=== PATIENT | female | born 1965 | race Caucasian/White ===

== ENCOUNTER 2016-02-21 14:07 | Outpatient (CLI) | payer BC, OTHER | END 2016-02-21 14:08 | disposition home or self-care (01) | DX: N60.11 Diffuse cystic mastopathy of right breast (principal) ==

== ENCOUNTER 2016-07-14 14:50 | Outpatient (CLI) | payer BC, OTHER ==
[2016-07-14 19:12] LABS: BASOPHILS % (AUTO) 0.8 %; EOSINOPHILS # (AUTO) 0.1 10^3/uL (0.0-0.7); EOSINOPHILS % (AUTO) 1.9 %; HCT - HEMATOCRIT 36.8 % (37.0-47.0); HGB - HEMOGLOBIN 11.8 g/dL (12.0-16.0); LYMPHOCYTES # (AUTO) 1.2 10^3/uL (1.5-3.5); LYMPHOCYTES % (AUTO) 19.3 %; MEAN CORPUSCULAR HEMOGLOBIN 26.8 pg (27.0-31.0); MEAN CORPUSCULAR HGB CONC 32.1 g/dL (32.0-36.0); MEAN CORPUSCULAR VOLUME 83.2 fL (81.0-99.0); MEAN PLATELET VOLUME 10.4 fL (7.9-10.8); MONOCYTES # (AUTO) 0.7 10^3/uL (0.0-1.0); MONOCYTES % (AUTO) 10.3 %; NEUTROPHILS # (AUTO) 4.3 10^3/uL (1.5-6.6); NEUTROPHILS % (AUTO) 67.7 %; NUCLEATED RED BLOOD CELLS AUTO 0.1 /100WBC; RED BLOOD COUNT 4.42 10^6/uL (4.20-5.40); RED CELL DISTRIBUTION WIDTH 15.7 % (12.0-15.0); UNCORRECTED WHITE BLOOD COUNT 6.3 x10^3/uL; WHITE BLOOD COUNT 6.3 x10^3/uL (4.8-10.8)
[2016-07-14 19:18] LABS: ALBUMIN/GLOBULIN RATIO 1.1 (1.0-2.2); BILIRUBIN,TOTAL 0.3 mg/dL (0.2-1.0); CALCIUM 9.1 mg/dL (8.5-10.3); CREATININE 0.5 mg/dL (0.4-1.0); POTASSIUM 3.8 mmol/L (3.5-5.0); TOTAL PROTEIN 6.6 g/dL (6.7-8.2)
== END 2016-07-14 14:51 | disposition home or self-care (01) ==
LOC: LAB.WCP 14:50
PROVIDERS: ATTEND Family Medicine
DX: D50.9 Iron deficiency anemia, unspecified (principal); E55.9 Vitamin D deficiency, unspecified; Z98.84 Bariatric surgery status
CPT/HCPCS: 36415; 80053; 82306; 84443; 85025

== ENCOUNTER 2016-09-21 08:00 | Outpatient (CLI) | payer BC, OTHER | END 2016-09-21 23:59 | disposition home or self-care (01) | LOC: LAB.R 08:00 | PROVIDERS: ATTEND Family Medicine | DX: N39.0 Urinary tract infection, site not specified (principal) | CPT/HCPCS: 87086 ==

== ENCOUNTER 2017-04-06 08:00 | Outpatient (CLI) | payer BC, OTHER ==
[2017-04-06 14:05] LABS: FERRITIN 4.3 ng/mL (11.0-306.8)
[2017-04-06 14:12] LABS: MAGNESIUM 1.8 mg/dL (1.7-2.8); TOTAL PROTEIN 6.6 g/dL (6.7-8.2)
== END 2017-04-06 08:01 | disposition home or self-care (01) ==
LOC: LAB.WCP 08:00
PROVIDERS: ATTEND Physician Assistant Medical
DX: M62.81 Muscle weakness (generalized) (principal); D50.9 Iron deficiency anemia, unspecified; Z98.84 Bariatric surgery status
CPT/HCPCS: 36415; 82607; 82728; 82746; 83540; 83735; 84155; 84466

== ENCOUNTER 2018-03-03 13:50 | Outpatient (CLI) | payer BC, OTHER | END 2018-03-03 13:51 | disposition home or self-care (01) | LOC: DI 13:50 | PROVIDERS: ATTEND Family Medicine | DX: R00.2 Palpitations (principal); Z82.49 Family history of ischemic heart disease and other diseases of the circulatory system | CPT/HCPCS: 93306 ==

== ENCOUNTER 2018-10-21 12:44 | Outpatient (CLI) | payer BC, OTHER ==
[2018-10-21 13:09] LABS: BASOPHILS % (AUTO) 0.6 %; EOSINOPHILS # (AUTO) 0.1 10^3/uL (0.0-0.7); EOSINOPHILS % (AUTO) 2.1 %; HGB - HEMOGLOBIN 14.4 g/dL (12.0-16.0); LYMPHOCYTES # (AUTO) 0.8 10^3/uL (1.5-3.5); LYMPHOCYTES % (AUTO) 12.2 %; MEAN CORPUSCULAR HEMOGLOBIN 32.1 pg (27.0-31.0); MEAN CORPUSCULAR HGB CONC 33.6 g/dL (32.0-36.0); MEAN CORPUSCULAR VOLUME 95.8 fL (81.0-99.0); MEAN PLATELET VOLUME 9.9 fL (7.9-10.8); MONOCYTES # (AUTO) 0.4 10^3/uL (0.0-1.0); MONOCYTES % (AUTO) 6.9 %; NEUTROPHILS # (AUTO) 4.9 10^3/uL (1.5-6.6); PLT - PLATELET COUNT 245 10^3/uL (130-450); RED BLOOD COUNT 4.48 10^6/uL (4.20-5.40); RED CELL DISTRIBUTION WIDTH 11.9 % (12.0-15.0); WHITE BLOOD COUNT 6.2 x10^3/uL (4.8-10.8)
[2018-10-21 13:29] LABS: HB2 TOTAL 15.1 g/dL; HEMOGLOBIN A1C 0.48 g/dL; HEMOGLOBIN A1C % 5.1 % (4.6-6.2)
[2018-10-21 13:30] LABS: ALBUMIN 3.8 g/dL (3.2-5.5); ALBUMIN/GLOBULIN RATIO 1.3 (1.0-2.2); ALKALINE PHOSPHATASE 79 IU/L (42-121); ALT ALANINE AMINOTRANSFERASE 62 IU/L (10-60); AST ASPARTATE AMINOTRANSFERASE 51 IU/L (10-42); BILIRUBIN,TOTAL 0.8 mg/dL (0.2-1.0); BUN - BLOOD UREA NITROGEN 11 mg/dL (6-20); CALCIUM 9.1 mg/dL (8.5-10.3); CARBON DIOXIDE - CO2 26 mmol/L (21-32); CHLORIDE 104 mmol/L (101-111); CHOL/HDL RATIO 2.8 (<4.4); CHOLESTEROL 202 mg/dL; CREATININE 0.5 mg/dL (0.4-1.0); GFR - MDRD 129 (>89); GLUCOSE 99 mg/dL (70-100); HDL CHOLESTEROL 71 mg/dL; LDL CHOLESTEROL,CALCULATED 108 mg/dL; LDL/HDL RATIO 1.5 (<4.4); SODIUM 140 mmol/L (135-145); TOTAL PROTEIN 6.8 g/dL (6.7-8.2); VLDL CHOLESTEROL 23 mg/dL
[2018-10-21 13:48] LABS: FERRITIN 42.3 ng/mL (11.0-306.8)
== END 2018-10-21 12:45 | disposition home or self-care (01) ==
LOC: LAB 12:44
PROVIDERS: ATTEND Family Medicine
DX: Z98.84 Bariatric surgery status (principal)
CPT/HCPCS: 36415; 80053; 80061; 82607; 82728; 83036; 83721; 84443; 85025

== ENCOUNTER 2018-10-21 15:10 | Outpatient (CLI) | payer BC, OTHER ==
--- NOTE | 2018-10-25 12:07 | Mammography Report ---
Reason: SCREENING MAMMO Procedure Date: 10/21/2018 Accession Number: [id number] / [id number] Procedure: RODO - Screening Mammo w/Shimon CPT Code: FULL RESULT: EXAM: Screening Mammo w/Shimon DATE: 10/21/2018 3:33 PM CLINICAL HISTORY: Routine screening TECHNIQUE: (B) - Bilateral CC and MLO views were obtained. COMPARISON: 02/21/2016, 01/22/2016, 02/24/2014 and 06/20/2012 PARENCHYMAL PATTERN: (A) - The breasts demonstrate scattered fibroglandular densities bilaterally. FINDINGS: Interval decrease in the cyst cluster size 11:00 right breast 7 cm from the nipple. New well circumscribed 1 cm bilobed nodule left breast 2:00 position 3 cm from the nipple, possibly a cyst cluster. There are no other suspicious masses, calcifications, areas of distortion, or interval changes. IMPRESSION: Incomplete examination left breast. BI-RADS category 0. Negative right breast. RECOMMENDATION: (ADDUS) - Targeted ultrasound recommended. Left breast BI-RADS CATEGORY: (0) - Incomplete Examination - need additional evaluation. STANDARD QUALIFYING STATEMENTS: 1. This examination was not reviewed with the aid of Computer-Aided Detection (CAD). 2. A negative or benign imaging report should not preclude biopsy if clinically suspicious findings are present. 3. Dense breasts may obscure an underlying neoplasm. 4. This examination was reviewed with the aid of 3D breast imaging (tomosynthesis).
== END 2018-10-21 15:11 | disposition home or self-care (01) ==
LOC: DI 15:10
DX: Z12.31 Encounter for screening mammogram for malignant neoplasm of breast (principal); R92.8 Other abnormal and inconclusive findings on diagnostic imaging of breast
CPT/HCPCS: 77063; 77067

== ENCOUNTER 2018-11-10 08:43 | Outpatient (CLI) | payer BC, OTHER ==
--- NOTE | 2018-11-10 12:04 | Ultrasound Report ---
Reason: ABN MAMMO LT BREAST Procedure Date: 11/10/2018 Accession Number: [id number] / [id number] Procedure: US - Breast Unilateral Limited CPT Code: FULL RESULT: EXAM: Breast Unilateral Limited DATE: 11/10/2018 11:19 AM CLINICAL HISTORY: Abnormal screening mammogram with small indeterminate upper outer quadrant periareolar mass. ? COMPARISON: 10/21/2018, 01/22/2016 02/21/2016. TECHNIQUE: Targeted ultrasound was performed of the left breast in the area of clinical concern at 2 o'clock and 3 distance from the nipple. ?Color Doppler was employed as appropriate. ? FINDINGS: In the area of mammographic concern, there is an approximate 2 mm maximum diameter somewhat linear cystic lesion, probably dilated duct. No definite suspicious finding. IMPRESSION: BI-RADS CATEGORY 3--PROBABLY BENIGN RECOMMENDATIONS: Six-month follow-up left 3-D mammogram and targeted left breast ultrasound. This limited?breast?ultrasound?was?tailored to address the acute clinical issue. Recommend diagnostic follow-up at a?designated FDA/MQSA certified?breast?imaging facility for more detailed and complete?evaluation. [facility]
== END 2018-11-10 08:44 | disposition home or self-care (01) ==
LOC: DI 08:43
PROVIDERS: ATTEND Family Medicine
DX: R92.8 Other abnormal and inconclusive findings on diagnostic imaging of breast (principal)
CPT/HCPCS: 76642

== ENCOUNTER 2019-01-18 09:27 | Day surgery (SDC) | payer BC, OTHER ==
[2019-01-18] MEDS ORDERED: LACTATED RINGERS 1,000 ML IV ONE (09:36)
[2019-01-18] MEDS ORDERED: LIDO GARGLE 30 ML BOTTLE ONE (10:16)
[2019-01-18] MEDS ORDERED: MIDAZOLAM 2 MG/2 ML VIAL IVP ONE (10:28)
[2019-01-18] MEDS ORDERED: ONDANSETRON 4 MG/2 ML VIAL IVP ONE (10:28)
[2019-01-18] MEDS ORDERED: fentaNYL 250 MCG/5 ML VIAL IVP ONE (10:28)
[2019-01-18] MEDS ORDERED: LIDO GARGLE 30 ML BOTTLE PO ONE (10:36)
[2019-01-18] MEDS ORDERED: BENZOCAINE/TETRACAINE/BUTAMBEN 20 GM TOP ONE (11:29)
[2019-01-18 11:43] VITALS: BP 114/58
== END 2019-01-18 09:28 | disposition home or self-care (01) ==
LOC: SDS 09:27
PROVIDERS: ATTEND Surgery
PROC: 0DJD8ZZ Inspection of Lower Intestinal Tract, Via Natural or Artificial Opening Endoscopic (ICD-10-PCS; 2019-01-18)
PROC: 0DB38ZX Excision of Lower Esophagus, Via Natural or Artificial Opening Endoscopic, Diagnostic (ICD-10-PCS; principal; 2019-01-18 10:45)
PROC: 0DB68ZX Excision of Stomach, Via Natural or Artificial Opening Endoscopic, Diagnostic (ICD-10-PCS; 2019-01-18 10:45)
DX: Z12.11 Encounter for screening for malignant neoplasm of colon (principal); K21.0 Gastro-esophageal reflux disease with esophagitis; K57.30 Diverticulosis of large intestine without perforation or abscess without bleeding; K44.9 Diaphragmatic hernia without obstruction or gangrene; D64.9 Anemia, unspecified; N39.41 Urge incontinence; M19.90 Unspecified osteoarthritis, unspecified site
CPT/HCPCS: 43239; 45378; A9270; J3010; J7120

== ENCOUNTER 2019-03-13 08:56 | Outpatient (CLI) | payer BC, OTHER ==
--- NOTE | 2019-03-13 09:33 | CT Report ---
Reason: RENAL COLI, LEFT FLANK PAIN, HX STONES Procedure Date: 03/13/2019 Accession Number: [id number] / [id number] Procedure: CT - Abdomen/Pelvis WO CPT Code: Final Report FULL RESULT: EXAM: CT ABDOMEN AND PELVIS (CT KUB) EXAM DATE: 03/13/2019 09:09 AM. CLINICAL HISTORY: Left flank pain COMPARISONS: ABDOMEN/PELVIS W/ 03/28/2013 7:26 PM PELVIS 03/19/2010 8:12 PM. TECHNIQUE: Routine axial helical CT imaging was performed through the abdomen and pelvis without IV contrast. Reconstructions: Coronal and sagittal. In accordance with CT protocol optimization, one or more of the following dose reduction techniques were utilized for this exam: automated exposure control, adjustment of mA and/or KV based on patient size, or use of iterative reconstructive technique. FINDINGS: Lung Bases: There is reticular density within the right middle lobe and lingula which likely represents scarring or atelectasis. No acute infiltrate. Right Kidney/Ureter: No stones, hydronephrosis, or hydroureter. No perinephric fat stranding. Left Kidney/Ureter: No stones, hydronephrosis, or hydroureter. No perinephric fat stranding. Other Solid Organs: Noncontrast images of the solid organs are grossly unremarkable. There is a small left adrenal adenoma. Gallbladder/Bile Ducts: Unremarkable. Peritoneal Cavity: Patient has undergone gastric bypass. CT appearance of the bypass anatomy is within normal limits. No evidence of small bowel obstruction. The appendix is normal. There is sigmoid colon diverticulosis without CT evidence of diverticulitis. Pelvic Organs: No bladder stones. No urinary bladder wall thickening. There is a stable fluid density focus within the left adnexa which likely represents an ovarian cyst. Vasculature: There are no vascular aneurysms. Other: None. IMPRESSION: 1. The kidneys demonstrate no stones or hydronephrosis. 2. Status post gastric bypass. CT appearance of the bypass anatomy is within normal limits. 3. No evidence of appendicitis or bowel obstruction. 4. There is distal colon diverticulosis without evidence of diverticulitis. 5. Stable small left ovarian cyst. [facility] The call report notification system was initiated by Dr. Graciela Ny at 09:33 AM on 03/13/2019.
== END 2019-03-13 08:57 | disposition home or self-care (01) ==
LOC: DI 08:56
PROVIDERS: ATTEND Family Medicine
DX: K57.30 Diverticulosis of large intestine without perforation or abscess without bleeding (principal); N83.202 Unspecified ovarian cyst, left side; Z87.442 Personal history of urinary calculi; Z98.84 Bariatric surgery status
CPT/HCPCS: 74176

== ENCOUNTER 2019-10-09 10:05 | Outpatient (CLI) | payer BC, OTHER ==
--- NOTE | 2019-10-10 15:18 | Ultrasound Report ---
LIMITED ULTRASOUND OF LEFT BREAST: 10/09/2019 CLINICAL: 6 month follow-up of cysts. Comparison is made to exams dated: 10/09/2019 mammogram, 11/10/2018 ultrasound, 10/21/2018 mammogram, ultrasound, 02/21/2016 mammogram, and 01/22/2016 mammogram - [facility]. Color flow ultrasound of the left breast 2 o'clock region was performed. Nelson scale images of the r eal-time examination were reviewed. There are two 2 mm oval cysts in the left breast superior lateral quadrant anterior depth. These 2 m m oval cysts are anechoic. One of these cysts has not significantly changed and correlates with mamm ography findings. The other is incidental. Color flow imaging demonstrates that there is no vascular ity present. IMPRESSION: BENIGN There is no sonographic evidence of malignancy. The two cysts in the left breast are benign. Return to annual mammogram screening schedule is recommended. Findings and recommendations were conveyed to the patient at time of exam. This exam was interpreted at Station ID: [id number]. Electronically Signed By: Vidhya roth/:10/09/2019 12:05:34 Ultrasound BI-RADS: 2 Benign BI-RADS CATEGORY: (2) - 2 RECOMMENDATION: (ANNUAL) - Recommend routine annual screening mammography. [id number] return to screening LATERALITY: (B)
--- NOTE | 2019-10-10 15:18 | Mammography Report ---
BILATERAL DIGITAL DIAGNOSTIC MAMMOGRAM 3D/2D: 10/09/2019 CLINICAL: Patient returns for a 6 month follow up of the left breast. Annual screening on right breas t. Comparison is made to exams dated: 11/10/2018 ultrasound, 10/21/2018 mammogram, 02/21/2016 ultrasound, 02/21/2016 mammogram, 01/22/2016 mammogram, and 06/20/2012 mammogram - [facility]. T here are scattered fibroglandular elements in both breasts. The previously described oval low density asymmetry in the left breast at 2 o'clock anterior depth is not convincingly seen in additional views. No suspicious changes. No other significant masses, calcifications, or other findings are seen in either breast. IMPRESSION: INCOMPLETE: NEEDS ADDITIONAL IMAGING EVALUATION The oval low density asymmetry in the left breast is less well seen on the current study. An ultrasou nd is recommended to evaluate stability of this area. Mammograms are otherwise stable. Ultrasound was performed immediately following this exam. This exam was interpreted at Station ID: [id number]. NOTE: For mammograms, a report in lay terms will be sent to the patient. Approximately 15% of breast malignancies will not be visualized mammographically. In the management of a palpable breast mass, a negative mammogram must not discourage biopsy of a clinically suspicious lesion. Electronically Signed By: Vidhya roth/:10/09/2019 12:01:49 ACR BI-RADS Category 0: Incomplete 3340F PARENCHYMAL PATTERN: (A) - The breast(s) demonstrate(s) scattered fibroglandular densities. BI-RADS CATEGORY: (0) - 0 Ultrasound [id number] Immediate follow-up LATERALITY: (B)
== END 2019-10-09 10:06 | disposition home or self-care (01) ==
LOC: DI 10:05
PROVIDERS: ATTEND Nurse Practitioner
DX: N60.02 Solitary cyst of left breast (principal)
CPT/HCPCS: 76642; 77066

== ENCOUNTER 2019-12-08 08:00 | Outpatient (CLI) | payer BC, OTHER ==
[2019-12-08 18:16] LABS: BASOPHILS # (AUTO) 0.1 10^3/uL (0.0-0.1); BASOPHILS % (AUTO) 0.8 %; EOSINOPHILS # (AUTO) 0.1 10^3/uL (0.0-0.7); EOSINOPHILS % (AUTO) 1.2 %; HGB - HEMOGLOBIN 14.6 g/dL (12.0-16.0); LYMPHOCYTES # (AUTO) 1.1 10^3/uL (1.5-3.5); LYMPHOCYTES % (AUTO) 15.4 %; MEAN CORPUSCULAR HGB CONC 31.9 g/dL (32.0-36.0); MEAN CORPUSCULAR VOLUME 93.8 fL (81.0-99.0); MEAN PLATELET VOLUME 11.6 fL (7.9-10.8); MONOCYTES # (AUTO) 0.5 10^3/uL (0.0-1.0); MONOCYTES % (AUTO) 6.6 %; NEUTROPHILS # (AUTO) 5.5 10^3/uL (1.5-6.6); NEUTROPHILS % (AUTO) 75.6 %; PLT - PLATELET COUNT 256 10^3/uL (130-450); RED BLOOD COUNT 4.87 10^6/uL (4.20-5.40); RED CELL DISTRIBUTION WIDTH 13.4 % (12.0-15.0); WHITE BLOOD COUNT 7.3 x10^3/uL (4.8-10.8)
[2019-12-08 18:38] LABS: % IRON SATURATION 31 % (20-50); ALBUMIN 4.1 g/dL (3.2-5.5); ALBUMIN/GLOBULIN RATIO 1.3 (1.0-2.2); ALKALINE PHOSPHATASE 104 IU/L (42-121); ALT ALANINE AMINOTRANSFERASE 25 IU/L (10-60); AST ASPARTATE AMINOTRANSFERASE 30 IU/L (10-42); BILIRUBIN,TOTAL 0.5 mg/dL (0.2-1.0); BUN - BLOOD UREA NITROGEN 13 mg/dL (6-20); CALCIUM 9.5 mg/dL (8.5-10.3); CARBON DIOXIDE - CO2 25 mmol/L (21-32); CHLORIDE 102 mmol/L (101-111); CHOLESTEROL 212 mg/dL; CREATININE 0.6 mg/dL (0.4-1.0); GLUCOSE 95 mg/dL (70-100); HDL CHOLESTEROL 71 mg/dL; IRON 122 ug/dL (28-170); LDL CHOLESTEROL,CALCULATED 105 mg/dL; LDL/HDL RATIO 1.5 (<4.4); SODIUM 138 mmol/L (135-145); TOTAL IRON BINDING CAPACITY 392 ug/dL (250-450); TOTAL PROTEIN 7.3 g/dL (6.7-8.2); TRANSFERRIN 280 mg/dL (192-382); VLDL CHOLESTEROL 36 mg/dL
[2019-12-08 18:51] LABS: FERRITIN 13.7 ng/mL (11.0-306.8)
[2019-12-08 20:19] LABS: HEMOGLOBIN A1c% 5.4 % (4.27-6.07)
== END 2019-12-08 23:59 | disposition home or self-care (01) ==
LOC: LAB.WCP 08:00
PROVIDERS: ATTEND Family Medicine
DX: D50.9 Iron deficiency anemia, unspecified (principal); R94.5 Abnormal results of liver function studies; Z13.220 Encounter for screening for lipoid disorders; Z98.84 Bariatric surgery status
CPT/HCPCS: 36415; 80053; 80061; 82728; 83036; 83540; 83721; 84443; 84466; 85025

== ENCOUNTER 2020-04-19 13:58 | Outpatient (CLI) | payer BC, OTHER ==
--- NOTE | 2020-04-19 16:25 | XRAY Report ---
PROCEDURE: Foot 2 View RT INDICATIONS: RT FOOT JOINT PAIN TECHNIQUE: 2 views of the foot were acquired. COMPARISON: None FINDINGS: Bones: No fractures or dislocations. No suspicious bony lesions. Mild scattered IP degenerative na rrowing as well as first MTP. No visualized erosions. Soft tissues: No tibiotalar joint effusion. Achilles tendon appears normal. IMPRESSION: Scattered degenerative IP and first MTP degenerative narrowing. Reviewed by: Ping Patricio MD on 04/19/2020 4:24 PM [facility] Approved by: Ping Patricio MD on 04/19/2020 4:24 PM [facility] Station ID: [id number]
== END 2020-04-19 13:59 | disposition home or self-care (01) ==
LOC: DI.N 13:58
PROVIDERS: ATTEND Nurse Practitioner Family
DX: M79.671 Pain in right foot (principal); M19.071 Primary osteoarthritis, right ankle and foot

== ENCOUNTER 2021-09-04 15:28 | Outpatient (CLI) | payer OTHER ==
--- NOTE | 2021-09-05 14:12 | XRAY Report ---
PROCEDURE: Lumbar Spine 2 View INDICATIONS: SCIATICA TECHNIQUE: 2 views of the lumbar spine were acquired. COMPARISON: None. FINDINGS: Bones: 5 [id number] vertebrae are present. There is trace retrolisthesis of L4 and L5 L5 on S1 . Moderate to severe disc and foraminal narrowing are noted at L4-5 and L5 1, most severe at L5-S1. O verall multilevel mild to moderate disc and foraminal narrowing are present throughout the remainder of the lumbar spine. No vertebral body compression fractures. No suspicious bony lesions. Soft tissues: Overlying bowel gas pattern is normal. No suspicious soft tissue calcifications. IMPRESSION: Degenerative changes most severe at L5-S1 as above. Reviewed by: Ping Patricio MD on 09/05/2021 2:11 PM PDT Approved by: Ping Patricio MD on 09/05/2021 2:11 PM PDT Station ID: [id number]
== END 2021-09-04 15:29 | disposition home or self-care (01) ==
LOC: DI 15:28
PROVIDERS: ATTEND Nurse Practitioner
DX: M54.30 Sciatica, unspecified side (principal); M43.16 Spondylolisthesis, lumbar region; M43.17 Spondylolisthesis, lumbosacral region; M47.816 Spondylosis without myelopathy or radiculopathy, lumbar region; M47.817 Spondylosis without myelopathy or radiculopathy, lumbosacral region; M48.061 Spinal stenosis, lumbar region without neurogenic claudication